=== PATIENT | female | born 1960 | race Caucasian/White ===

== ENCOUNTER 2021-05-11 23:44 | Emergency (ER) | payer MEDICAID ==
[~2021-05-11] VITALS: Ht 167.6 cm; Wt 66.0 kg
[2021-05-12] MEDS ORDERED: HYDROCODONE/ACETAMINOPHEN 5/325MG TABLET PO ONE (01:30)
[2021-05-12 02:00] VITALS: BP 122/74
[2021-05-12] MEDS ORDERED: TRAM50TA3 MT (02:31)
[2021-05-12] MEDS ORDERED: IBUP-2029 MT (02:31)
== END 2021-05-12 02:45 | disposition home or self-care (01) ==
LOC: ER 23:44
DX: M25.512 Pain in left shoulder (principal); I10 Essential (primary) hypertension
CPT/HCPCS: 73030; 93005; 99283